=== PATIENT | female | born 1945 | race Caucasian/White ===

== ENCOUNTER 2019-07-11 17:02 | Emergency (ER) | payer MEDICARE, MEDICAID ==
[~2019-07-11] VITALS: Ht 170.2 cm; Wt 66.4 kg
[2019-07-11] MEDS ORDERED: metroNIDAZOLE-Flagyl 500mg/NS 100 ML IV STA (17:09)
[2019-07-11] MEDS ORDERED: vancomycin/NS 1 GM ADD-VANTAGE 250 ML IV ONE (17:10)
[2019-07-11] MEDS ORDERED: CefTRIAXone 2gm/D5W 50ml 50 ML IV ONE (17:10)
[2019-07-11 17:31] LABS: ABG BASE EXCESS 6.4 mmol/L (-2.0-3.0); ABG HCO3 34.3 mmol/L (22.0-26.0); ABG OXYGEN SATURATION 91.2 % (95-98); ABG PCO2 (T) 64.4 mmHg (35.0-45.0); ABG PH (T) 7.344 (7.350-7.450); ABG PO2 (T) 61.6 mmHg (83-108); ALLEN'S TEST Positive; FCOHb 0.6 % (0.5-1.5); FMetHb 0.1 % (0.3-1.12); FO2Hb 90.6 % (94-100)
[2019-07-11 17:35] LABS: BASOPHILS % (AUTO) 0.5 % (0-1); EOSINOPHILS # (AUTO) 0.3 X10'3 (0-0.9); EOSINOPHILS % (AUTO) 4.6 % (0-6); HEMATOCRIT 40.7 % (35.0-45.0); HEMOGLOBIN 13.7 g/dl (12.0-16.0); LYMPHOCYTES # (AUTO) 1.7 X10'3 (1.1-4.8); LYMPHOCYTES % (AUTO) 26.6 % (21-51); MEAN CORPUSCULAR HEMOGLOBIN 31.4 PG (27.0-31.0); MEAN CORPUSCULAR HGB CONC 33.6 g/dL (33.0-36.5); MEAN CORPUSCULAR VOLUME 93.4 FL (78-98); MEAN PLATELET VOLUME 7.4 FL (7.4-10.4); MONOCYTES # (AUTO) 0.7 X10'3 (0-0.9); MONOCYTES % (AUTO) 10.9 % (2-12); NEUTROPHILS # (AUTO) 3.7 X10'3 (1.8-7.7); NEUTROPHILS % (AUTO) 57.4 % (42-75); PLATELET COUNT 219 X10'3 (140-440); RED BLOOD COUNT 4.36 X10'6 (4.20-5.60); RED CELL DISTRIBUTION WIDTH 12.9 % (11.5-14.5); WHITE BLOOD COUNT 6.4 X10'3 (4.5-11.0)
[2019-07-11 17:42] LABS: PARTIAL THROMBOPLASTIN TIME 25 SECONDS (22-32)
[2019-07-11 17:44] LABS: ALANINE AMINOTRANSFERASE 21 U/L (12-78); ALBUMIN 2.8 G/DL (3.4-5.0); ALBUMIN/GLOBULIN RATIO 0.6 (1.1-1.5); ANION GAP 1 (8-16); ASPARTATE AMINO TRANSFERASE 16 U/L (10-37); BILIRUBIN,TOTAL 0.1 MG/DL (0.1-1.0); BLOOD UREA NITROGEN 13 MG/DL (7-18); CALCIUM 8.7 MG/DL (8.5-10.1); CHLORIDE 106 MMOL/L (99-107); GLUCOSE 110 MG/DL (70-104); POTASSIUM 3.9 MMOL/L (3.5-5.1); SODIUM 142 MMOL/L (135-145); TOTAL CARBON DIOXIDE 34.7 MMOL/L (24-32); TOTAL PROTEIN 7.2 G/DL (6.4-8.2); eGFR > 90 ML/MIN
[2019-07-11 17:45] LABS: ALKALINE PHOSPHATASE 149 IU/L (46-116)
[2019-07-11 18:21] LABS: CLARITY,URINE CLEAR (Clear); COLOR,URINE YELLOW (Yellow); GLUCOSE, URINE NEGATIVE (Neg); KETONES,URINE NEGATIVE (Neg); LEUKOCYTE ESTERASE ,URINE NEGATIVE (Neg); NITRITES, URINE NEGATIVE (Neg); OCCULT BLOOD,URINE TRACE-INTACT (Neg); PROTEIN,URINE NEGATIVE (Neg); UROBILINOGEN,URINE 0.2 E.U/dL (0.2-1.0)
--- NOTE | 2019-07-11 18:21 | NUR ---
TEMP. DONOHUE READS 97.2 F, APPLIED WARM BLANKETS.
[2019-07-11 18:42] LABS: UA COLLECTION TYPE FOLEY CATH
[2019-07-11 18:44] LABS: BACTERIA,URINE FEW /HPF (Neg); SQUAMOUS EPITHELIAL CELL,UR FEW /LPF (FEW); WBC,URINE 0-4 /HPF (0-4)
[2019-07-11] MEDS ORDERED: naloxone 0.4 mg/ml inj IV ONE ×2 (20:40→22:00)
[2019-07-11 21:50] LABS: ABG BASE EXCESS 3.3 mmol/L (-2.0-3.0); ABG HCO3 31.6 mmol/L (22.0-26.0); ABG OXYGEN SATURATION 97.2 % (95-98); ABG PCO2 (T) 63.6 mmHg (35.0-45.0); ABG PO2 (T) 95.6 mmHg (83-108); ALLEN'S TEST Positive; FCOHb 0.7 % (0.5-1.5); FLOW 2 L/min; FMetHb 0.1 % (0.3-1.12); FO2Hb 96.4 % (94-100); TOTAL HEMOGLOBIN 13.3 G/dl (12.0-16.0)
[2019-07-11 21:52] LABS: ACETAMINOPHEN < 2.0 UG/ML (10-30); ETHANOL < 0.010 GM/DL (0.0-0.010)
--- NOTE | 2019-07-11 21:52 | NUR ---
GIVEN NARCAN 0.4 MG IV, IMPROVEMENT IN PURPOSEFULL MOVEMENT 3 MIN AFTER ADMIN. PT NOW WITH EYES OPEN AND OCCASIONAL GRUNTING. DR. PHAM AT BEDSIDE FOR REEVAL. PT WITH STABLE VS. ABG DRAWN, RT DROPPED SUPP O2 DOWN TO 1 LITER.
--- NOTE | 2019-07-11 21:58 | NUR ---
DR. PHAM REPORTS PT APPEARS NOW TO BE AT BASELINE (AFTER RECEIVING NARCAN 0.4 MG). PT TO BE DISCHARGED.
--- NOTE | 2019-07-11 22:10 | NUR ---
PTS FACILITY CALLED,[phone] [address]. SHE WILL BEGIN COORDINATING DC TRANSPORTATION AND CALL BACK SHORTLY.
--- NOTE | 2019-07-11 22:13 | NUR ---
PTS STAFF MEMBER CALLING BACK AND WILL ARRIVE IN APROX 45 MIN FOR TRANSPORT.
[2019-07-11 22:51] VITALS: BP 127/70
[2019-07-12 08:03] LABS: URINE AMPHETAMINE SCREEN NEGATIVE (Neg); URINE BARBITUATE SCREEN NEGATIVE (Neg); URINE BENZODIAZEPINES SCREEN NEGATIVE (Neg); URINE CANNABINOID SCREEN NEGATIVE (Neg); URINE COCAINE SCREEN NEGATIVE (Neg); URINE METHADONE SCREEN NEGATIVE (Neg); URINE OPIATE SCREEN NEGATIVE (Neg); URINE PHENCYCLIDINE SCREEN NEGATIVE (Neg)
== END 2019-07-11 22:54 | disposition home or self-care (01) ==
LOC: ER 17:02
DX: J18.1 Lobar pneumonia, unspecified organism (principal); E87.4 Mixed disorder of acid-base balance; R41.82 Altered mental status, unspecified; R62.50 Unspecified lack of expected normal physiological development in childhood
CPT/HCPCS: 36415; 36600; 70450; 71045; 80053; 80305; 80320; 80329; 81001; 82140; 82803; 83605; 83735; 84145; 85018; 85025; 85610; 85730; 87040; 87502; 87503; 93005; 96365; 96366; 96368; 96375; 96376; 99284; J0696; J2310; J3370; J3490

== ENCOUNTER 2019-09-03 15:51 | Emergency (ER) | payer MEDICARE, MEDICAID ==
[~2019-09-03] VITALS: Ht 157.5 cm; Wt 66.0 kg
[~2019-09-03 15:51] MED LIST: ACET-2119 PO; ALB0.5UD IH; ASPI81TA52 PO; ATOR20TA PO; BACL10TA PO; BETHAMETHASONE TOP; BISA10SU11 RC; CARB15DR91 EACH EAR; CEFD300C3 PO; DIAZ10TA4 PO; DOCO2CRE; FOLI0.4T2 PO; GUAI600T45 PO; HYDR-4383 PO; HYDR28OI2 TOP; KEP500T PO; LEVO50TA8 PO; LORA10TA7 PO; MAGN400O6 PO; METR-159 PO; MULT-1074 PO; MYCOL15CR TP; NA P133E4 RC; OMEP40CA13 PO; POLY17PO10 PO; SENN-162 PO
[2019-09-03] MEDS ORDERED: methylPREDNISolone sod succ 125mg/2ml vial IV ONE (15:55)
[2019-09-03] MEDS ORDERED: normal saline 1000ML IV soln IVB ONE (15:55)
[2019-09-03] MEDS ORDERED: ipratropium/albuterol 3ml nebule NEB ONE (15:55)
--- NOTE | 2019-09-03 16:13 | NUR ---
RT at bedside, agreed with plan to keep patient on room air for SPO2 95%.
[2019-09-03 16:26] LABS: BASOPHILS % (AUTO) 0.3 % (0-1); EOSINOPHILS # (AUTO) 0.3 X10'3 (0-0.9); EOSINOPHILS % (AUTO) 4.1 % (0-6); HEMATOCRIT 35.4 % (35.0-45.0); HEMOGLOBIN 11.8 g/dl (12.0-16.0); LYMPHOCYTES # (AUTO) 1.4 X10'3 (1.1-4.8); LYMPHOCYTES % (AUTO) 21.6 % (21-51); MEAN CORPUSCULAR HEMOGLOBIN 30.9 PG (27.0-31.0); MEAN CORPUSCULAR HGB CONC 33.4 g/dL (33.0-36.5); MEAN CORPUSCULAR VOLUME 92.5 FL (78-98); MEAN PLATELET VOLUME 7.7 FL (7.4-10.4); MONOCYTES # (AUTO) 0.9 X10'3 (0-0.9); NEUTROPHILS # (AUTO) 3.9 X10'3 (1.8-7.7); PLATELET COUNT 209 X10'3 (140-440); RED BLOOD COUNT 3.83 X10'6 (4.20-5.60); RED CELL DISTRIBUTION WIDTH 13.4 % (11.5-14.5); WHITE BLOOD COUNT 6.5 X10'3 (4.5-11.0)
[2019-09-03 16:30] LABS: ABG BASE EXCESS 2.8 mmol/L (-2.0-3.0); ABG HCO3 29.2 mmol/L (22.0-26.0); ABG OXYGEN SATURATION 92.7 % (95-98); ABG PCO2 (T) 53.2 mmHg (35.0-45.0); ABG PH (T) 7.357 (7.350-7.450); ABG PO2 (T) 65.2 mmHg (83-108); ALLEN'S TEST Positive; FCOHb 0.3 % (0.5-1.5); FMetHb 0.1 % (0.3-1.12); FO2Hb 92.3 % (94-100); RESPIRATORY RATE (OBSERVED) 20 b/min
[2019-09-03 16:41] LABS: ALANINE AMINOTRANSFERASE 28 U/L (12-78); ALBUMIN 2.4 G/DL (3.4-5.0); ALBUMIN/GLOBULIN RATIO 0.6 (1.1-1.5); ALKALINE PHOSPHATASE 118 IU/L (46-116); ANION GAP 5 (8-16); ASPARTATE AMINO TRANSFERASE 18 U/L (10-37); BILIRUBIN,TOTAL 0.2 MG/DL (0.1-1.0); BLOOD UREA NITROGEN 4 MG/DL (7-18); BUN/CREATININE RATIO 9.1 (6.6-38.0); CALCIUM 7.9 MG/DL (8.5-10.1); CHLORIDE 110 MMOL/L (99-107); CREATININE 0.44 MG/DL (0.40-0.90); GLUCOSE 98 MG/DL (70-104); POTASSIUM 3.3 MMOL/L (3.5-5.1); SODIUM 147 MMOL/L (135-145); TOTAL CARBON DIOXIDE 32.1 MMOL/L (24-32); TOTAL PROTEIN 6.4 G/DL (6.4-8.2); eGFR > 90 ML/MIN
[2019-09-03 17:37] VITALS: BP 141/74
== END 2019-09-03 18:01 | disposition home or self-care (01) ==
LOC: ER 15:52
DX: J69.0 Pneumonitis due to inhalation of food and vomit (principal); R41.82 Altered mental status, unspecified; Z79.82 Long term (current) use of aspirin; Z79.899 Other long term (current) drug therapy
CPT/HCPCS: 36415; 36600; 71045; 80053; 82803; 83880; 85018; 85025; 93005; 94640; 96361; 96374; 99284; J2930; J7030; 94760